=== PATIENT | male | born 2005 | race Caucasian/White ===

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

== ENCOUNTER 2025-03-14 11:57 | Emergency (ER) | payer OTHER, BC, SELFPAY ==
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
[2025-03-14 12:07] VITALS: BP 140/89; PULSE 90; RESP 18; TEMP 37.2; O2SAT 98
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
== END 2025-03-14 13:21 | disposition home or self-care (01) ==
PROVIDERS: Emergency Provider Emergency Medicine
DX: S93.402A Sprain of unspecified ligament of left ankle, initial encounter (principal); W01.0XXA Fall on same level from slipping, tripping and stumbling without subsequent striking against object, initial encounter
CPT/HCPCS: 73610; 99283